=== PATIENT | female | born 1970 | race Caucasian/White ===

== ENCOUNTER 2020-12-11 13:57 | Inpatient (IN) | payer OTHER ==
[~2020-12-11] VITALS: Ht 160 cm; Wt 61.2 kg
[~2020-12-11 13:57] MED LIST: ELAVIL 10 MG TA10 MG PO; FLAGYL500 MG PO; LEVAQUIN TAB 5500 MG PO; LORTAB 5-325 M1 EACH PO; PAXIL20 MG PO; PERCOCET 7.5-31 EACH PO; PHENERGAN 25 MG25 M1 PO; VANCOCIN HCL125 MG PO; VANCOMYCIN HCL250 MG PO; ZANAFLEX4 MG PO; ZOFRAN4 MG PO
[2020-12-11 14:31] LABS: HEMOGLOBIN 17.2 gm/dl (12.3-15.3); RED BLOOD COUNT 5.46 M/UL (4.00-5.10); WHITE BLOOD COUNT 16.4 K/UL (4.5-11.0)
[2020-12-11 14:51] LABS: BUN/CREATININE RATIO 18 (0-10)
[2020-12-11] MEDS ORDERED: LUMIGAN 0.01%2.5 ML EYEBOTH (21:55)
[2020-12-12 02:28] LABS: WHITE BLOOD COUNT 15.2 K/UL (4.5-11.0)
[2020-12-12 02:29] LABS: HEMOGLOBIN 15.1 gm/dl (12.3-15.3); RED BLOOD COUNT 4.82 M/UL (4.00-5.10)
--- NOTE | 2020-12-12 03:58 | NUR ---
CALLED TELE TO HAVE THEM SEND ME A TELEMETRY FOR THIS PATIENT. THEY SAID THEY CURRENTLY DO NOT HAVE ANY TELE BOXES AVAILABLE AT THIS TIME. THEY HAVE THE PATIENT'S INFORMATION SET ASIDE UNTIL A TELEMETRY BECOMES AVAILABLE. PT ALSO REFUSES TO WEAR HER SCDS AT THIS TIME.
[2020-12-13 06:18] LABS: HEMOGLOBIN 13.4 gm/dl (12.3-15.3); RED BLOOD COUNT 4.36 M/UL (4.00-5.10)
[2020-12-13 06:22] LABS: WHITE BLOOD COUNT 10.6 K/UL (4.5-11.0)
[2020-12-13 06:35] LABS: BUN/CREATININE RATIO 17 (0-10)
[2020-12-14 03:46] LABS: HEMOGLOBIN 12.8 gm/dl (12.3-15.3); RED BLOOD COUNT 4.16 M/UL (4.00-5.10); WHITE BLOOD COUNT 11.3 K/UL (4.5-11.0)
[2020-12-14 04:01] LABS: BUN/CREATININE RATIO 10 (0-10)
[2020-12-14 06:03] LABS: ADENOVIRUS F 40/41 Not Detected (Negative); ASTROVIRUS Not Detected (Negative); CAMPYLOBACTER Not Detected (Negative); CLOSTRIDIUM DIFFICILE TOX A/B Not Detected (Negative); CRYPTOSPORIDIUM Not Detected (Negative); E.COLI 0157 Not Detected (Negative); ENTAMOEBA HISTOLYTICA Not Detected (Negative); ENTEROAGGREGATIVE E.COLI (EAEC Not Detected (Negative); ENTEROPATHOGENIC E.COLI (EPEC) Not Detected (Negative); ENTEROTOXIGENIC E.COLI (ETEC) Not Detected (Negative); GIARDIA LAMBLIA Not Detected (Negative); NOROVIRUS GI/GII Not Detected (Negative); PLESIOMONAS SHIGELLOIDES Not Detected (Negative); ROTOVIRUS A Not Detected (Negative); SALMONELLA Not Detected (Negative); SAPOVIRUS Not Detected (Negative); SHIG/ENTEROINVAS.ECOLI (EIEC) Not Detected (Negative); SHIGA-LIK TOX.PRO.E.COLI (STEC Not Detected (Negative); VIBRIO Not Detected (Negative); VIBRIO CHOLERAE Not Detected (Negative); YERSINIA ENTEROCOLITICA Not Detected (Negative)
== END 2020-12-14 12:45 | disposition home or self-care (01) | DRG 392 ==
LOC: ER1 13:57 → M/S 17:34 → CDU 17:34 → M/S 21:04
PROVIDERS: Emergency Medicine; Physician Assistant Medical; ADMIT Internal Medicine
DX: R10.9 Unspecified abdominal pain (principal); N17.9 Acute kidney failure, unspecified; D72.829 Elevated white blood cell count, unspecified; M79.7 Fibromyalgia; F32.9 Major depressive disorder, single episode, unspecified; F17.210 Nicotine dependence, cigarettes, uncomplicated; R19.7 Diarrhea, unspecified; R11.2 Nausea with vomiting, unspecified; E83.42 Hypomagnesemia; Z20.822 Contact with and (suspected) exposure to COVID-19
CPT/HCPCS: 36415; 71045; 80048; 80053; 82550; 82553; 83690; 83735; 84484; 84703; 85025; 85027; 87507; 96374; 96375; 96376; 99285; J2270; J2550; J3475; J7030; U0002

== ENCOUNTER 2021-01-06 21:23 | Emergency (ER) | payer OTHER ==
[~2021-01-06 21:23] MED LIST changes: +LUMIGAN 0.01%2.5 ML EYEBOTH
[2021-01-06 22:38] LABS: HEMOGLOBIN 15.6 gm/dl (12.3-15.3); RED BLOOD COUNT 5.02 M/UL (4.00-5.10); WHITE BLOOD COUNT 14.8 K/UL (4.5-11.0)
[2021-01-06 22:54] LABS: BUN/CREATININE RATIO 16 (0-10)
[2021-01-07] MEDS ORDERED: ZOFRAN ODT 4 MG4 MG SL (02:56)
== END 2021-01-07 02:20 | disposition home or self-care (01) ==
LOC: ER1 21:23
PROVIDERS: Physician Assistant
DX: K52.9 Noninfective gastroenteritis and colitis, unspecified (principal); F17.200 Nicotine dependence, unspecified, uncomplicated; Z88.1 Allergy status to other antibiotic agents
CPT/HCPCS: 80053; 85025; 96374; 96375; 99284; J1885; J2405; J2550; J7030; Q9967